=== PATIENT | female | born 1990 | race Two or more races ===

== ENCOUNTER 2024-01-08 14:26 | Emergency (ER) | payer MEDICAID, OTHER ==
[~2024-01-08] VITALS: Ht 160 cm; Wt 84.9 kg
[2024-01-08 15:20] LABS: Urine Bacteria FEW /hpf (None Seen); Urine Blood 1+ /uL (Negative); Urine Clarity HAZY (Clear); Urine Color Yellow (Yellow); Urine Mucus FEW (None Seen); Urine Protein, UAD TRACE (Negative); Urine Specific Gravity 1.025 (1.001-1.035); Urine Urobilinogen Normal (Negative); Urine WBC 5 /hpf (0 - 5); Urine pH 5.5 (5.0-8.0)
[2024-01-08] MEDS ORDERED: CEPH500C PO (16:19)
[2024-01-08 16:40] VITALS: BP 115/61; PULSE 14; RESP 67; TEMP 97.9; O2SAT 97
[2024-01-08] MEDS: ACETAMINOPHEN 500 MG TAB PO ONE (16:45)
== END 2024-01-08 16:47 | disposition home or self-care (01) ==
LOC: ER 14:26
DX: O23.41 Unspecified infection of urinary tract in pregnancy, first trimester (principal); N39.0 Urinary tract infection, site not specified; Z3A.01 Less than 8 weeks gestation of pregnancy
CPT/HCPCS: 81001

== ENCOUNTER 2024-02-18 12:43 | Emergency (ER) | payer MEDICAID ==
[~2024-02-18] VITALS: Ht 165.1 cm; Wt 85.7 kg
[~2024-02-18 12:43] MED LIST: ACET-1304 PO; CEPH500C PO
[2024-02-18 15:15] LABS: Basophils # (auto) 0 10 ^3/uL (0-0.2); Basophils % (auto) 0.7 % (0.0-2.0); Eosinophils # (auto) 0.2 10 ^3/uL (0-0.8); Hematocrit 39.1 % (36.0-46.0); Hemoglobin 13.2 g/dL (12.2-16.2); Lymphocytes # (auto) 1.9 10 ^3/uL (0.4-5.4); Lymphocytes % (auto) 26.1 % (10.0-50.0); Mean Corpuscular Hemoglobin 30.5 pg (28.0-32.0); Mean Corpuscular Hgb Conc. 33.9 g/dL (32.0-36.0); Monocytes # (auto) 0.4 10 ^3/uL (0-1.3); Monocytes % (auto) 6.1 % (0.0-12.0); Neutrophils # (auto) 4.6 10 ^3/uL (1.6-8.6); Neutrophils % (auto) 64.1 % (37.0-80.0); Nucleated Red Blood Cells % 0.1 %; Red Blood Cells 4.34 10^6/uL (4.0-5.20); Red Cell Distribution Width 13.5 % (11.8-14.3); White Blood Cell 7.1 10^3/uL (4.4-10.8)
[2024-02-18 15:16] LABS: Chloride 107 mmol/L (98-107); Potassium 3.8 mmol/L (3.5-5.1); Sodium 136 mmol/L (136-145)
[2024-02-18 15:17] LABS: Anion Gap 9 (5-15); Calcium 9.5 mg/dL (8.5-10.1); Carbon Dioxide 20 mmol/L (20-30)
[2024-02-18 15:22] LABS: BUN/Creatinine Ratio 16.7 (10.0-20.0); Blood Urea Nitrogen 9 mg/dL (9-23); Glucose 95 mg/dL (74-106)
[2024-02-18 15:43] LABS: Urine Bacteria MANY /hpf (None Seen); Urine Blood 3+ /uL (Negative); Urine Budding Yeast MODERATE /hpf (None Seen); Urine Clarity Turbid (Clear); Urine Color Light-Yellow (Yellow); Urine Protein, UAD Negative (Negative); Urine Urobilinogen Normal (Negative); Urine WBC 8 /hpf (0 - 5); Urine pH 5.5 (5.0-9.0)
[2024-02-18 19:30] VITALS: PULSE 67; RESP 20; O2SAT 94
[2024-02-18] MEDS: ACETAMINOPHEN 500 MG TAB PO ONE (19:34)
[2024-02-18] MEDS ORDERED: ACET500T58 PO (21:09)
[2024-02-18] MEDS ORDERED: NITR-87 PO (21:09)
[2024-02-18] MEDS: NITROFURANTOIN 100 mg CAP PO ONE (21:45)
[2024-02-18 21:47] VITALS: BP 117/57; PULSE 59; RESP 20; TEMP 98.2; O2SAT 100
== END 2024-02-18 21:48 | disposition home or self-care (01) ==
LOC: ER 12:43
DX: O20.9 Hemorrhage in early pregnancy, unspecified (principal); O23.41 Unspecified infection of urinary tract in pregnancy, first trimester; N39.0 Urinary tract infection, site not specified; R10.2 Pelvic and perineal pain; Z3A.09 9 weeks gestation of pregnancy
CPT/HCPCS: 36415; 76801; 76817; 80048; 81001; 84702; 85025